=== PATIENT | female | born 1960 | race Caucasian/White ===

== ENCOUNTER 2022-02-09 11:23 | Emergency (ER) | payer BC ==
[~2022-02-09] VITALS: Ht 154.9 cm; Wt 72.7 kg
[2022-02-09 11:28] VITALS: BP 150/75
--- NOTE | 2022-02-09 12:49 | NUR ---
[employer]TEGA TAPED FINGERS FOR COMFORT.
== END 2022-02-09 12:53 | disposition home or self-care (01) ==
LOC: ER 11:23
DX: S63.615A Unspecified sprain of left ring finger, initial encounter (principal); X58.XXXA Exposure to other specified factors, initial encounter; Y93.89 Activity, other specified; Y92.89 Other specified places as the place of occurrence of the external cause; Y99.8 Other external cause status
CPT/HCPCS: 73130; 99283